=== PATIENT | male | born 1945 | race Caucasian/White ===

== ENCOUNTER 2021-09-21 07:39 | Emergency (ER) | payer MEDICARE, OTHER ==
[2021-09-21 08:03] VITALS: BP 143/68; PULSE 89; O2SAT 96
[2021-09-21] MEDS ORDERED: XYLOCAINE 1% HCL 20 ML MDV IJ ONE (08:05)
[2021-09-21] MEDS ORDERED: XYLOCAINE 1% HCL 20 ML MDV ONE (08:09)
--- NOTE | 2021-09-21 08:16 | ERPHSYRPT ---
- History of Present Illness Time Seen by Provider: 09/21/21 07:50 Source: patient Exam Limitations: no limitations Patient Subjective Stated Complaint: foreign object-fish hook in finger Triage Nursing Assessment: Patient ambulated back to ED and sat in bedside chair. Patient A+O X 3. Patient's skin pink, warm and dry. Patient was out fishing when he got a fish hook stuck in left hand 3rd digit. Patient denies pain or discomfort. Physician History: This is a right handed 76-year-old white male patient who presents with a fishhook in his palmar aspect left third digit. It occurred prior to arrival this morning. Patient's tetanus status is up-to-date. Patient states that his last tetanus injection was approximately 3 to 4 years ago. Timing/Duration: today Quality: painful Severity: mild Location: hands (Left third digit) Possible Causes: other ([place]) Associated Symptoms: denies symptoms Allergies/Adverse Reactions: No Known Drug Allergies Allergy (Unverified 09/21/21 07:47) Hx Tetanus, Diphtheria Vaccination/Date Given: Yes Hx Influenza Vaccination/Date Given: Yes Hx Pneumococcal Vaccination/Date Given: No Immunizations Up to Date: Yes Travel Risk - International Travel Have you traveled outside of the country in past 3 weeks: No - Coronavirus Screening Are you exhibiting any of the following symptoms?: No Close contact with a COVID-19 positive Pt in past 14-21 Days: No - Vaccine Status Have you recieved a Covid-19 vaccination: Yes [employer]: [employer] - Vaccination Dates Date of 2cond Vaccination (if applicable): na - Review of Systems Constitutional: No Symptoms Eyes: No Symptoms Ears, Nose, & Throat: No Symptoms Respiratory: No Symptoms Cardiac: No Symptoms Abdominal/Gastrointestinal: No Symptoms Genitourinary Symptoms: No Symptoms Musculoskeletal: No Symptoms Skin: No Symptoms Neurological: No Symptoms Psychological: No Symptoms Endocrine: No Symptoms Hematologic/Lymphatic: No Symptoms Immunological/Allergic: No Symptoms - Past Medical History Pertinent Past Medical History: Yes Neurological History: No Pertinent History ENT History: No Pertinent History Cardiac History: Hypertension Respiratory History: No Pertinent History Endocrine Medical History: No Pertinent History Musculoskeletal History: No Pertinent History GI Medical History: No Pertinent History History: No Pertinent History Psycho-Social History: No Pertinent History Male Reproductive Disorders: No Pertinent History Other Medical History: gout - Past Surgical History Past Surgical History: Yes Neuro Surgical History: No Pertinent History Cardiac: CABG Respiratory: No Pertinent History Gastrointestinal: No Pertinent History Genitourinary: No Pertinent History Musculoskeletal: No Pertinent History Male Surgical History: No Pertinent History Other Surgical History: CABG 20 years ago - Social History Smoking Status: Never smoker Exposure to second hand smoke: No Drug Use: none Patient Lives Alone: No - Nursing Vital Signs Nursing Vital Signs: Initial Vital Signs Temperature 97.2 F 09/21/21 07:49 Pulse Rate 89 09/21/21 07:49 Respiratory Rate 19 09/21/21 07:49 Blood Pressure 143/68 09/21/21 07:49 O2 Sat by Pulse Oximetry 96 09/21/21 07:49 Pain Scale Pain Intensity 0 - Physical Exam General Appearance: no apparent distress, alert Eye Exam: PERRL/EOMI, eyes nml inspection Ears, Nose, Throat Exam: normal ENT inspection, moist mucous membranes Neck Exam: normal inspection, non-tender, supple, full range of motion Respiratory Exam: airway intact, No chest tenderness, No respiratory distress Gastrointestinal/Abdomen Exam: No tenderness Rectal Exam: not done Back Exam: normal inspection, normal range of motion, No CVA tenderness, No vertebral tenderness Extremity Exam: tenderness ([place] palmar aspect left third digit) Neurologic Exam: alert, oriented x 3, cooperative, 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 The palmar aspect of the left third digit was prepped with Betadine solution. Approximately 2 cc of 1% lidocaine plain was used to anesthetize the area where the fishhook was embedded into the skin. Using metal fine wire drawer, the fishhook was cut then pushed through with hemostats and then grasped with a second hemostat to remove from the skin. There were no complications. The patient tolerated the procedure well. The area was then cleaned with Hibiclens solution and dried. A pressure dressing was applied. - Course Nursing assessment & vital signs reviewed: Yes Ordered Tests: Medication Summary Discontinued Medications Generic Name Dose Route Start Last Admin Trade Name Freq PRN Reason Stop Dose Admin Lidocaine HCl 3 ml 09/21/21 08:05 09/21/21 08:06 Lidocaine Hcl 1% 20 Ml Mdv 20 Ml Ml IJ 09/21/21 08:06 3 ml STAT ONE Administration - Progress Progress: improved Counseled pt/family regarding: diagnosis - Departure Departure Disposition: Home Clinical Impression: [place] injury to finger Condition: Stable Critical Care Time: No Referrals: DOCTOR,NO FAMILY [Primary Care Provider] - Follow up/PCP as directed Instructions: Removal of Foreign Body in Skin Additional Instructions: Keep the fishhook removal site clean daily with soap and water. Do not use antibiotic ointment or creams. Cover the site with a Band-Aid daily. Use Tylenol and ibuprofen, if not allergic, for pain control.
== END 2021-09-21 08:23 | disposition home or self-care (01) ==
LOC: ED 07:39
DX: S61.243A Puncture wound with foreign body of left middle finger without damage to nail, initial encounter (principal); W26.8XXA Contact with other sharp object(s), not elsewhere classified, initial encounter; W45.8XXA Other foreign body or object entering through skin, initial encounter; Y93.19 Activity, other involving water and watercraft; I10 Essential (primary) hypertension
CPT/HCPCS: 10120; 99282